=== PATIENT | female | born 1990 | race Two or more races ===

== ENCOUNTER 2023-03-20 18:51 | Emergency (ER) | payer OTHER ==
[~2023-03-20] VITALS: Ht 165.1 cm; Wt 84.4 kg
[2023-03-20] MEDS ORDERED: PRENA1 CHEW TA1.4 MG PO (19:26)
[2023-03-20] MEDS ORDERED: DICLEGIS DR 101 EACH PO (19:26)
[2023-03-20] MEDS ORDERED: ALBUTEROL2.5 MG/3 M IH (21:38)
[2023-03-20] MEDS ORDERED: BUDESONIDE0.5 MG/2 M IH (21:38)
== END 2023-03-20 21:59 | disposition home or self-care (01) ==
LOC: ER 18:51
DX: O99.512 Diseases of the respiratory system complicating pregnancy, second trimester (principal); Z3A.14 14 weeks gestation of pregnancy; J45.901 Unspecified asthma with (acute) exacerbation; Z88.2 Allergy status to sulfonamides; Z88.1 Allergy status to other antibiotic agents